=== PATIENT | male | born 1950 | race Caucasian/White ===

== ENCOUNTER → 2016-12-11 | Outpatient (CLI) | payer OTHER ==
--- NOTE | 2016-12-15 09:05 | CR ---
EXAMINATION: Left hip HISTORY: Pain COMPARISON: None TECHNIQUE: 2 Views FINDINGS: There is no acute osseous or metallic, dislocation, or fracture. Mild degenerative changes are noted within the left hip with moderate subchondral cystic change. Early osteophyte formation i s noted. Bone mineralization appears normal. Small bone island within the intertrochanteric region. IMPRESSION: 1. Mild to moderate degenerative changes within the left hip without acute findings.
== END ==
LOC: MW.CHFP 14:11
PROVIDERS: ATTEND Physician Assistant
DX: M25.552 Pain in left hip (principal)
CPT/HCPCS: 73502-26-LT; 73502-LT

== ENCOUNTER → 2016-12-22 | Outpatient (CLI) | payer OTHER ==
--- NOTE | 2016-12-23 09:12 | MR ---
EXAMINATION: MRI lumbar spine HISTORY: Radiculopathy COMPARISON: 01/11/2009 TECHNIQUE: Multiplanar multisequence images obtained of the lumbar spine without contrast. FINDINGS: The lumbar spinal alignment is normal. The vertebral body heights and disc spaces are well -maintained. The distal spinal cord is normal and the conus terminates at L1-L2. The visualized retr operitoneal structures are normal. The SI joints are symmetric. T12-L1: Unremarkable. L1-L2: Unremarkable. L2-L3: Minimal facet arthritic changes, otherwise grossly unremarkable. L3-L4: Small diffuse disc bulge with mild facet hypertrophy resulting in minimal spinal canal stenos is. No significant neural foraminal stenosis. L4-L5: Small to moderate diffuse disc bulge with facet and ligamentum flavum hypertrophy resulting i n mild spinal canal stenosis. There is moderate to severe bilateral neural foraminal stenosis. L5-S1: Small diffuse disc bulge without significant spinal canal stenosis. Moderate to severe bilate ral neural foraminal stenosis. IMPRESSION: Multilevel degenerative disc disease in the lumbar spine most prominent at L4-L5 and L5- S1 with individual details above.
--- NOTE | 2016-12-23 09:23 | MR ---
EXAMINATION: MRI of the left hip HISTORY: Pain COMPARISON: Radiographs dated 12/11/2016 TECHNIQUE: Multiplanar and multisequence images obtained through the left hip. FINDINGS: There is at least moderate articular cartilage thinning within the left hip with subchondr al cystic change noted within the acetabulum. There is a trace left and small right hip joint effusi on. Bone marrow edema is noted within the acetabulum most prominent along the anterior aspect. Trans verse ligament appears intact. The SI joints are symmetric. The visualized intrapelvic structures ar e normal. The adjacent myotendinous signal characteristics appear normal. IMPRESSION: 1. 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 2. Trace left and small right hip joint effusion.
== END ==
LOC: MW.MRI 13:43
PROVIDERS: ATTEND Physician Assistant
DX: M25.552 Pain in left hip (principal); M54.16 Radiculopathy, lumbar region; M16.0 Bilateral primary osteoarthritis of hip; M51.27 Other intervertebral disc displacement, lumbosacral region; M48.07 Spinal stenosis, lumbosacral region
CPT/HCPCS: 72148; 72148-26; 73721-26-LT; 73721-LT